=== PATIENT | male | born 2000 | race Two or more races ===

== ENCOUNTER 2020-06-16 14:53 | Outpatient (RCR) | payer MEDICAID, SELFPAY | END 2020-07-09 08:25 | disposition other institution (70) | LOC: HO.PT 14:53 | PROVIDERS: PCP General Practice; Visit Provider General Practice | DX: M54.5 Low back pain (principal) | CPT/HCPCS: 97110; 97161 ==

== ENCOUNTER 2020-09-26 14:20 | Outpatient (REF) | payer MEDICAID, SELFPAY ==
--- NOTE | ~2020-09-26 | XR_ITS ---
EXAMINATION: BILATERAL HAND X-RAY CLINICAL INFORMATION: Stiffness COMPARISON: Previous x-ray July 2017 TECHNIQUE: 3 views each hand FINDINGS: Bone alignment is normal. No fracture or dislocation is seen. The joint spaces are normal. Soft tissues are normal. XR/XR hand LT min 3V IMPRESSION: Unremarkable exam.
--- NOTE | ~2020-09-26 | XR_ITS ---
EXAMINATION: BILATERAL HAND X-RAY CLINICAL INFORMATION: Stiffness COMPARISON: Previous x-ray July 2017 TECHNIQUE: 3 views each hand FINDINGS: Bone alignment is normal. No fracture or dislocation is seen. The joint spaces are normal. Soft tissues are normal. XR/XR hand RT min 3V IMPRESSION: Unremarkable exam.
== END 2020-09-26 14:21 | disposition home or self-care (01) ==
LOC: HO.XRAY 14:20
PROVIDERS: PCP Family Medicine; Visit Provider Internal Medicine
DX: M25.641 Stiffness of right hand, not elsewhere classified (principal); M25.642 Stiffness of left hand, not elsewhere classified
CPT/HCPCS: 73130

== ENCOUNTER 2023-02-02 15:10 | Outpatient (AMB) | payer OTHER, SELFPAY ==
--- NOTE | 2023-02-02 15:30 | A.OFFVIS_ITS ---
Intake Intake Visit Reasons: Genitourinary complaints Intake Note: New patient is present for Genital Complaints HPI HPI Comments History of Present Illness Details Carolynn is a [place]er-speaking male. 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 Erectile issues Occasional erectile issues Appear to be related to sleep status Reassurance provided Review of Systems Const Denies chills and Denies fever(s) Card Reports no additional complaints and Denies syncope Resp Denies cough GI Denies abdominal pain and Denies heartburn Reports as per HPI and Denies change in libido Neuro Denies syncope Psych Denies change in libido Endo Denies change in libido Physical Exam Const General: cooperative, healthy appearing, comfortable and no acute distress Orientation/consciousness: patient oriented x3 HEENT Face and sinus: Yes normal facial exam Mouth: moist mucous membranes Neck Neck: Yes normal visual inspection, Yes full ROM and Yes trachea midline Chest Chest palpation & inspection: normal inspection of the chest Resp Effort & Inspection: normal respiratory effort, able to speak in complete sentences and no respiratory distress GI Inspection: Yes normal to inspection Back/Spine/Pelvis Cervical Spine: normal cervical lordosis Thoracic/Lumbar Spine: thoracic and lumbar spine normal to inspection Skin General skin exam: no rashes or lesions noted Neuro General: patient oriented x3, gait normal, tone normal and moves all extremities Extrem General: Yes normal to inspection and Yes capillary refill normal Assessment & Plan Assessment & Plan (1) Erectile disorder: Code(s): N52.9 - Male erectile dysfunction, unspecified Plan P.r.n. Patient Instructions: Imaging studies, laboratory and physical exam results were discussed and reviewed in detail. No major barriers to patient understanding were identified. An opportunity to ask questions regarding the treatment plan was provided. All questions were answered. The patient expressed understanding and agreement with the above treatment plan. The patient is aware they should contact our office by phone for worsening of their current condition or the appearance of new urologic symptoms. Compliance is encouraged with any medications and followup testing that is ordered. It is a privilege to participate in the urologic care of your patient. If you have any questions or concerns regarding treatment for the above conditions, or other urologic issues, please do not hesitate to contact me. The office telephone contact is [phone]. This note is constructed using voice recognition software. While every effort has been made to ensure accuracy metal tile lather errors may have been included. Yours sincerely, Dr Christopher Walden MD, [facility] - Urology Providers of Expert, Compassionate Care for the Genitourinary System Coding Level of Care Code New Pt Level 3 (48239) Diagnoses Erectile disorder N52.9
== END 2023-02-02 15:58 | disposition home or self-care (01) ==
PROVIDERS: Visit Provider Urology
DX: N52.9 Male erectile dysfunction, unspecified (principal)
CPT/HCPCS: 99203

== ENCOUNTER → 2023-02-02 15:10 | Outpatient (BNVA) | payer OTHER, SELFPAY | PROVIDERS: Visit Provider Urology | DX: N52.9 Male erectile dysfunction, unspecified (principal) | CPT/HCPCS: 99202 ==

== ENCOUNTER 2023-09-21 13:37 | Outpatient (AMB) | payer OTHER, SELFPAY ==
--- NOTE | 2023-09-21 13:41 | A.OFFVIS_ITS ---
Intake Intake Visit Reasons: Follow Up(Erectile Dys) CONFIRMED Intake Note: Patient presents today for a follow-up on Erectile Dysfunction Meds- None Allergies to Antibiotic- No Known Allergies Blood Thinner- None Patient stated he is having early ejaculation during sex, and he is feeling worry. Skate Maker Required: Yes Accompanied by: Self / Same As Patient Allergies No Known Allergies Allergy (Verified 09/21/23 13:48) HPI HPI Comments History of Present Illness Details Carolynn is a [place]-speaking male. 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 Follow-up for erectile issues Erectile premature ejaculation New relationship Premature ejaculation Recommend trial low-dose daily Cialis plus duration [place] jelly Review of Systems Const Denies chills and Denies fever(s) Card Reports no additional complaints and Denies syncope Resp Denies cough GI Denies abdominal pain and Denies heartburn Reports as per HPI and Denies change in libido Neuro Denies syncope Psych Denies change in libido Endo Denies change in libido Physical Exam Const General: cooperative, healthy appearing, comfortable and no acute distress Orientation/consciousness: patient oriented x3 HEENT Face and sinus: Yes normal facial exam Mouth: moist mucous membranes Neck Neck: Yes normal visual inspection, Yes full ROM and Yes trachea midline Chest Chest palpation & inspection: normal inspection of the chest Resp Effort & Inspection: normal respiratory effort, able to speak in complete sentences and no respiratory distress GI Inspection: Yes normal to inspection Back/Spine/Pelvis Cervical Spine: normal cervical lordosis Thoracic/Lumbar Spine: thoracic and lumbar spine normal to inspection Skin General skin exam: no rashes or lesions noted Neuro General: patient oriented x3, gait normal, tone normal and moves all extremities Extrem General: Yes normal to inspection and Yes capillary refill normal Assessment & Plan Assessment & Plan (1) Premature ejaculation: Code(s): F52.4 - Premature ejaculation (2) Erectile disorder: Code(s): N52.9 - Male erectile dysfunction, unspecified Plan Three-month follow-up tele Medications: New tadalafil 2.5 mg PO DAILY 90 days 90 tabs 0RF sexual activity F52.4 - Premature ejaculation Patient Instructions: Imaging studies, laboratory and physical exam results were discussed and reviewed in detail. No major barriers to patient understanding were identified. An opportunity to ask questions regarding the treatment plan was provided. All questions were answered. The patient expressed understanding and agreement with the above treatment plan. The patient is aware they should contact our office by phone for worsening of their current condition or the appearance of new urologic symptoms. Compliance is encouraged with any medications and followup testing that is ordered. It is a privilege to participate in the urologic care of your patient. If you have any questions or concerns regarding treatment for the above conditions, or other urologic issues, please do not hesitate to contact me. The office telephone contact is [phone]. This note is constructed using voice recognition software. While every effort has been made to ensure accuracy onion farmer errors may have been included. Yours sincerely, Dr Christopher Walden MD, [facility] - Urology Providers of Expert, Compassionate Care for the Genitourinary System Coding Level of Care Code Est Pt Level 4 (23781) Diagnoses Premature ejaculation F52.4 Erectile disorder N52.9
== END 2023-09-21 14:07 | disposition home or self-care (01) ==
PROVIDERS: PCP Family Medicine; Visit Provider Urology
DX: F52.4 Premature ejaculation (principal); N52.9 Male erectile dysfunction, unspecified
CPT/HCPCS: 99213

== ENCOUNTER → 2023-09-21 13:37 | Outpatient (BNVA) | payer OTHER, SELFPAY | PROVIDERS: PCP Family Medicine; Visit Provider Urology ==

== ENCOUNTER 2023-10-11 11:19 | Outpatient (REF) | payer MEDICAID, SELFPAY ==
[2023-10-11 13:54] LABS: Cholesterol 203 mg/dL (<200); HDL Cholesterol 42 mg/dL (>40); LDL Cholesterol Calculated 149 mg/dL (<100); TSH reflex Free T4 0.97 uIU/mL (0.32-4.0); Triglycerides 63 mg/dL (<150)
[2023-10-11 14:34] LABS: CT PCR NOT DETECTED (Not Detect.); NG PCR NOT DETECTED (Not Detect.)
[2023-10-11 14:45] LABS: Reflex LDLD? No
[2023-10-12 07:31] LABS: HBS Num1 37.64 mIU/mL (0-7.99); HBc Num1 0.05 S/CO (0.00-0.79); HBsAGNum1 0.34 S/CO (0.00-0.99); HIV AB/AG Nonreactive (Nonreactive); HIV Num 1 0.07 S/CO (0.00-0.99); Hepatitis B Core Antibody Nonreactive (Nonreactive); Hepatitis B Surface Antigen Negative (Negative); ~Hepatitis B Surface Antibody REACTIVE (Nonreactive); ~Hepatitis C Antibody Nonreactive (Nonreactive)
[2023-10-12 07:52] LABS: Syphilis Screen Nonreactive (Nonreactive)
== END 2023-10-11 11:20 | disposition home or self-care (01) ==
LOC: HO.HHCL 11:19
PROVIDERS: Visit Provider Family Medicine
DX: Z11.4 Encounter for screening for human immunodeficiency virus [HIV] (principal); Z13.6 Encounter for screening for cardiovascular disorders; R63.5 Abnormal weight gain; Z20.2 Contact with and (suspected) exposure to infections with a predominantly sexual mode of transmission
CPT/HCPCS: 0353U; 36415; 80061; 84443; 86704; 86706; 86780; 86803; 87340; 87389

== ENCOUNTER 2023-12-22 10:54 | Outpatient (AMB) | payer MEDICAID, SELFPAY ==
--- NOTE | 2023-12-22 11:24 | A.OFFVIS_ITS ---
Intake Visit Reasons: 3m follow up Intake Note: Patient is Present for Follow Up Urology Medication: Tadalafil Antibiotic Allergies:None Blood Thinners:None Allergies No Known Allergies Allergy (Verified 12/22/23 11:25) Medication List - Last Reconciled 12/22/23 by Christopher Walden MD esomeprazole magnesium 20 mg PO DAILY tadalafil 5 mg PO DAILY 90 days tadalafil 10 mg PO ONCE PRN 30 days tramadol 50 mg PO ONCE PRN 30 days HPI Comments Details: Carolynn is a [place]-speaking male. He is seen for the following urologic conditions - erectile issues Follow-up for erectile issues Good response to tadalafil for firmness Still with issues of premature ejaculation Recommend duration [place] lidocaine spray Will also give tramadol Six-month follow-up Erectile premature ejaculation New relationship Premature ejaculation Recommend trial low-dose daily Cialis plus duration [place] jelly Review of Systems Const Denies chills and Denies fever(s) Card Reports no additional complaints and Denies syncope Resp Denies cough GI Denies abdominal pain and Denies heartburn Reports as per HPI and Denies change in libido Neuro Denies syncope Psych Denies change in libido Endo Denies change in libido Physical Exam Const General: cooperative, healthy appearing, comfortable and no acute distress Orientation/consciousness: patient oriented x3 HEENT Face and sinus: Yes normal facial exam Mouth: moist mucous membranes Neck Neck: Yes normal visual inspection, Yes full ROM and Yes trachea midline Chest Chest palpation & inspection: normal inspection of the chest Resp Effort & Inspection: normal respiratory effort, able to speak in complete sentences and no respiratory distress GI Inspection: Yes normal to inspection Back/Spine/Pelvis Cervical Spine: normal cervical lordosis Thoracic/Lumbar Spine: thoracic and lumbar spine normal to inspection Skin General skin exam: no rashes or lesions noted Neuro General: patient oriented x3, gait normal, tone normal and moves all extremities Extrem General: Yes normal to inspection and Yes capillary refill normal Assessment & Plan Assessment & Plan (1) Premature ejaculation: Code(s): F52.4 - Premature ejaculation Category: Medical (2) Erectile disorder: Code(s): N52.9 - Male erectile dysfunction, unspecified Category: Medical Plan Daily tadalafil 5 mg 10 mg on demand Tramadol as necessary for premature ejaculation Duration lidocaine spray Medications: New tadalafil as needed 10 mg PO ONCE 30 days PRN 30 tabs 1RF sexual activity N52.9 - Male erectile dysfunction, unspecified tramadol 60 min prior to activity 50 mg PO ONCE 30 days PRN 15 tabs 0RF premature ejaculation F52.4 - Premature ejaculation Changed From tadalafil 2.5 mg PO DAILY 90 days 90 tabs 0RF sexual activity F52.4 - Premature ejaculation To tadalafil 5 mg PO DAILY 90 days 90 tabs 0RF sexual activity F52.4 - Premature ejaculation Patient Instructions: Imaging studies, laboratory and physical exam results were discussed and reviewed in detail. No major barriers to patient understanding were identified. An opportunity to ask questions regarding the treatment plan was provided. All questions were answered. The patient expressed understanding and agreement with the above treatment plan. The patient is aware they should contact our office by phone for worsening of their current condition or the appearance of new urologic symptoms. Compliance is encouraged with any medications and followup testing that is ordered. It is a privilege to participate in the urologic care of your patient. If you have any questions or concerns regarding treatment for the above conditions, or other urologic issues, please do not hesitate to contact me. The office telephone contact is [phone]. This note is constructed using voice recognition software. While every effort has been made to ensure accuracy base ply hand errors may have been included. Yours sincerely, Dr Christopher Walden MD, [facility] - Urology Providers of Expert, Compassionate Care for the Genitourinary System Coding Level of Care Code Est Pt Level 4 (73172) Diagnoses Premature ejaculation F52.4 Erectile disorder N52.9
== END 2023-12-22 11:46 | disposition home or self-care (01) ==
PROVIDERS: PCP Family Medicine; Visit Provider Urology
DX: N52.9 Male erectile dysfunction, unspecified (principal); F52.4 Premature ejaculation
CPT/HCPCS: 99213

== ENCOUNTER → 2023-12-22 10:54 | Outpatient (BNVA) | payer OTHER, SELFPAY | PROVIDERS: PCP Family Medicine; Visit Provider Urology | DX: F52.4 Premature ejaculation (principal); N52.9 Male erectile dysfunction, unspecified; Z79.899 Other long term (current) drug therapy | CPT/HCPCS: 99212 ==

== ENCOUNTER 2024-01-23 15:39 | Outpatient (REF) | payer MEDICAID, SELFPAY | END 2024-01-23 15:40 | disposition home or self-care (01) | LOC: HO.HHCLNP 15:39 | PROVIDERS: Visit Provider Family Medicine | DX: R10.9 Unspecified abdominal pain (principal) | CPT/HCPCS: 87338 ==

== ENCOUNTER 2024-08-01 17:54 | Outpatient (REF) | payer MEDICAID, SELFPAY | END 2024-08-01 17:55 | disposition home or self-care (01) | LOC: HO.HHCLNP 17:54 | PROVIDERS: Visit Provider Internal Medicine | DX: R50.9 Fever, unspecified (principal) | CPT/HCPCS: 87070 ==

== ENCOUNTER 2024-11-06 12:01 | Outpatient (REF) | payer MEDICAID, SELFPAY ==
[2024-11-06 13:39] LABS: Estimated Average Glucose 111 mg/dL; Hemoglobin A1C 143.2763 umol/L; Hemoglobin A1c % 5.5 % (<6.0); Total Hemoglobin (HGBA1C) 3934.9919 umol/L
--- OUTSIDE RECORDS SUMMARY | 2024-11-06 14:07 | XMS_ITS | Encounter Summary ---
Author Organization [employer] Address [address] [place] [address] Care Team Providers Care Blueprint Duplicator Name Role Phone Samira Martinez MD Primary Care Provider Reason for Visit * Reason Onset Date Comments Referral 10/08/2022 Encounter Details Date Type Department Care Team (Late st Contact Info) Description 10/08/2022 Telephone [facility] [address], [place] [phone] Samira Martinez MD [address], [place] [phone] Referral Social History Tobacco Use Types Packs/Day Years Used Date Smoking Tobacco: Never Assessed Sex and Gender Information Value Date Recorded Sex Assigned at Male 05/10/2022 10:31 AM EDT Legal Sex Male 10:31 AM EDT Gender Identity Male 05/10/2022 10:31 AM EDT Sexual Orientation Straight 05/10/2022 10 :31 AM EDT documented as of this encounter Miscellaneous Notes * Telephone Encounter - Marivel Mullen RN - 10/08/2022 2:05 PM EDT T/C returned to pt re below message. Pt would like referral as he is having some issues with his genitals, pt states he's had issues since he was 13. Was a little embarrassed to speak about specifics. Pt verbalized understanding and denied having any further questions or concerns at this time. * Telephone Encounter - Diana Diamond - 10/08/2022 1:14 PM EDT Tc from pt requesting a referral for an urology. Please contact pt at [phone] Sami Speaker documented in this encounter Plan of Treatment Not on file documented as of this encounter Visit Diagnoses Not on filedocumented in this encounter Care Teams Blueprint Duplicator Relationship Specialty Start Date End Date Samira Martinez MD [address] [place] [phone] PCP - General Family Medicine 10/04/16 documented as of this encounter
--- OUTSIDE RECORDS SUMMARY | 2024-11-06 14:07 | XMS_ITS | Clinical Summary ---
Author Organization [email or web address] Address [address] [place] [address] Care Team Providers Care Beater Worker Helper Name Role Phone Samira Martinez MD Primary Care Provider [phone] Allergies No known active allergies Medications ibuprofen 600 MG tablet take 1 tablet by oral route 3 times daily as needed for pain, take with foods, do not take everyday for >2wks 07/24/19 19 Active fluticasone (Flonase) 50 MCG/ACT nasal sprayIndications:Ac armando nasopharyngitis Administer 1 spray into each nostril in the morning. 16 g 2 10/28/19 23 Active cetirizine (ZyrTEC) 10 MG tabletIndications:A cute nasopharyngitis Take 1 tablet (10 mg) by mouth in the morning. 30 tablet 2 10/28/19 23 Active famotidine (Pepcid) 20 MG tablet Take 1 tablet (20 mg) by mouth Once per day. 30 tablet 2 01/23/20 24 Active Active Problems Problem Noted Date Diagnosed Date GERD (gastroesophageal reflux disease) Assessment & Plan (10/22/2023 7:16 PM EDT): - continue famotidine and sucralfate - previously prescribed esomeprazole and omeprazole - consider referral to GI for EGD evaluation if refractory - avoid irritatnts Erectile dysfunction 10/22/2023 Assessment & Plan (10/22/2023 7:10 PM EDT): - following with urologist - continue current treatment plan per urologist Allergic rhinitis 10/22/2023 Assessment & Plan (10/22/2023 7:15 PM EDT): - continue cetirizine and fluticasone nasal ELIZABETH (obstructive sleep apnea) 10/11/2023 Assessment & Plan (10/11/2023 5:43 AM EDT): Sleep Study on 05/14/21; showed mild ELIZABETH -Pt reports improvements of apnea Tinea versicolor 10/11/2023 Assessment & Plan (10/22/2023 7:09 PM EDT): Previously Dx with Tinea Versicolor. Treated with fluconazole PO 300 mg weekly x 2 and selenium sulfide shampoo. -Pt reports this treatment was ineffective. -Referred to Derm clinic, but patient did not keep appointment because he found another dermatological treatment online. History of Helicobacter pylori infection 023 History of COVID-19 06/21/2022 Resolved Problems Problem Noted Date Diagnosed Date Resolved Date Sore throat 10/27/2022 10/11/2023 Acute nasopharyngitis 10/27/20222023 Assessment & Plan (10/27/2022 12:17 PM EDT): Neg rapid Covid/Influenza tests Rx Flonase nasal spray x1w + Loratadine Out of school x 2d Rest (sleep at least 8 hours a night). Hydrate with plenty of water (avoid caffeine and alcohol). Use saline nose drops to loosen mucus Take Acetaminophen (Tylenol??)/Ibuprofen as needed to reduce fever, headache, body aches or discomfort Gargle with salt water and use throat sprays/lozenges for throat pain. Use heated, humidified air. If you do not have a humidifier, take hot showers. Cover coughs and sneezes using the crook of your elbow. If you have a fever, stay home and away from others (self isolation) until fever-free for 72 hours (temperature should be less than 100??F without medication). RTC prn Encounters Date Type Department Care Team Description 11/06/2024 10:45 AM EDT Office Visit [facility] [address] [place] [phone] Samira Martinez MD Routine general medical examination at a health care facility (Primary Dx); Screening for diabetes mellitus 11/06/[address] [facility] [address] [place] [address] Samira Martinez MD 11/06/2024 Travel 10/25/[address] [facility] [address] [place], [place] [phone] Samira Martinez MD Pre-visit Planning (SDOH negative, Tobacco screening negative) 10/23/[address] [facility] [address], [place] [phone] Samira Martinez MD chart prep 09/21/2024 Population Health Risk Score [facility] () Department [address] [place] [phone] Provider, Population Health Generic 08/23/[address] [facility] [address], [place] [phone] Anupama Horton [place] apil recall from Last 3 Months Immunizations Name Administration Dates Next Due DTaP 12/31/2003, 3,02/09/2000,11/16 DTaP, 5 pertussis antigens 1999 HPV 9-Valent 03/17/2017,10/04/2016,11/22/2014 Hep A, Adult 07/24/2018 Hep A, ped/adol, 2 dose 10/04/2016 Hep B, Adolescent or Pediatric 02/09/2000,1999,1999 HiB, unspecified 02/09/2000,1999 Hib (PRP-T) 1999 IPV 07/30/2003, 0,1999,09/14 Influenza injectable quadriv alent preservative free 04/01/2020,07/24/2018,07/27/2017,10/04,08/16/2011,06/18/2009 MMR 07/30/2003,08/01/2000 Meningococcal MCV4P ACYW-135 10/04/2016,08/16/19 12 Pfizer Covid-19 Vaccine 12+ 03/04/2021, 1 TD (adult), 2 Lf tetanus tox oid, preservative free, adsorbed 08/16/2011 Tdap 02/19/2022,08/16/2011 Varicella 08/16/2011,08/01/2000 Family History Medical History Relation Name Comments Cancer Maternal Grandmother Relation Name Status Comments Maternal Grandmother Social History Tobacco Use Types Packs/Day Years Used Date Smoking Tobacco: Never Passive Smoke Exposure: Never Smokeless Tobacco: Never Tobacco Cessation:Counseling Given: Not Answered Depression Answer Date Recorded Patient Health Questionnaire-9 Score 2 11/06/2024 Patient Health Questionnaire-9 Score 2 11/06/2024 Last PHQ-9: Questionnaire Data Not on file 0 11/06/2024 Housing Stability Answer Date Recorded What is your housing situation today? I have geo beth 10/25/[address] you li ve. Do you have problems with any of the following? None of the above 10/25/2024 Food Insecurity Answer Date Recorded Within the past 12 months, y ou worried that your food would run out before you got money to buy more: Never True 10/25/2024 Within the past 12 months,th e food you bought just didn't last and you didn't have enough money to get more: Never True Transportation Answer Date Recorded In the past 12 months, has l ack of transportation kept you from medical appts, meetings, work or from getting things needed for daily living? No 10/25/2024 Utilities Answer Date Recorded In the past 12 months, has t he electric, gas, oil or water company threatened to shut off services in your home? No 10/25/2024 Depression Answer Date Recorded Patient Health Questionnaire-2 Score 0 11/06/2024 Internet Access Answer Date Recorded Internet Access Q1 Yes 10/25/2024 Internet Access Q2 Not on file 10/25/2024 Sex and Gender Information Value Date Recorded Sex Assigned at Male 05/10/2022 10:31 AM EDT Legal Sex Male 10:31 AM EDT Gender Identity Male 05/10/2022 10:31 AM EDT Sexual Orientation Straight 05/10/2022 10 :31 AM EDT Last Filed Vital Signs Vital Sign Reading Time Taken Comments Blood Pressure 127/79 11/06/2024 11:03 AM EDT Pulse 92 11/06/2024 11:03 AM EDT Temperature 36.5 ??C (97.7 ??F) 11/06/2024 11:03 AM E DT Respiratory Rate 20 11/06/2024 11:03 AM EDT Oxygen Saturation 96% 11/06/2024 11:03 AM EDT Inhaled Oxygen Concentration - - Weight 83 kg (183 lb) 11/06/2024 11:03 AM EDT Height 168.4 cm (5' 6.29 ) 11/06/2024 11:03 AM E DT Body Mass Index 29.28 11/06/2024 11:03 AM EDT Plan of Treatment Health Maintenance Due Date Last Done Comments Alcohol/Substance Use Screening 2011 Family Planning (PISQ) 2014 COVID-19 Vaccine ( season) 2024 03/04/2021, 02/11/2021 Influenza Vaccine (#1) 2024 , 07/24/2018, 07/27/2017, Additional history exists Depression Screening 10/10/2024 10/11/2023, 10/11/19 24 SDOH Screening 10/25/2025 10/25/2024 Tobacco Screening 11/06/2025 11/06/2024 DTaP/Tdap/Td Vaccines (8 - Td or Tdap) 02/20/2032 02/19/2022, 08/16/2011, 08/16/2011, Additional history exists Zoster Vaccines (1 of 2) 2049 RSV Patients and Patients Aged 60 years or older (1 - 1-dose 75+ series) 2074 HIB Vaccines Aged Out 02/09/2000, 01/2000, 1999 No longer eligible based on patient's age to complete this topic Hepatitis B Vaccines Completed 02/09/2000, 1999, 1999 IPV Vaccines Completed 07/30/2003, 07/1999, 1999, Additional history exists Meningococcal Vaccine Completed 10/04/2016, 012 HPV Vaccines Completed 03/17/2017, 09/09, 11/22/2014 Hepatitis A Vaccines Completed 07/24/2018, 10/05/19 17 HIV Screening Completed 10/11/2023, 080 10/2021, 04/07/2020 Hepatitis C Screening Completed 10/11/2023 , 02/11/2022, 04/07/2020 Pneumococcal Vaccine: Pediatrics (0 to 5 Years) and At-Risk Patients (6 to 49) Years) Aged Out No longer eligible based on patient's age to complete this topic RSV under 20 months Aged Out No longe r eligible based on patient's age to complete this topic Rotavirus Vaccines Aged Out No longer eligible based on patient's age to complete this topic Procedures Procedure Name Priority Date/Time Associated Diagnosis Comments HEMOGLOBIN A1C Routine 11/06/2024 12:03 PM EDT Screening for diabetes mellitus HEPATITIS C AB W/REFL TO HCV RNA, QN, PCR Routine 10/11/2023 11:30 AM EDT Routine screening for STI (sexually transmitted infection) HIV 1/2 ANTIGEN/ANTIBODY, FOURTH GENERATION W/RFL Routine 10/11/2023 11:30 AM EDT Routine screening for STI (sexually transmitted infection) from Last 3 Months or Most Recently Relevant to Health Maintenance Results * Hemoglobin A1c (11/06/2024 12:03 PM EDT) Hemoglobin A1c 5.5 <6.0 % [facility] Comment:Hemoglobin A1C Refer ence Range Adults: 4.8 - 6.0 % Non diabetic: < 6.0 % Goal: < 7.0 %Additional Action Suggested: > 8.0 %Note: Hemoglobin A1c results are invalid for patients with abnormal amounts of HbF. Blood transfusions may impact the HbA1c concentration in the patient sample. Estimated Average Glucose 111 mg/dL [facility] Comment:eAG = Estimated ave rage glucose which is %A1C expressed asaverage glucose, using the formula of the D7H-FyedxvoGgeogcx Glucose study (ADAG), Diabetes Care, Vol.31,#8,Feb. 2007 Blood Venous blood specimen / Unknown 11/06/2024 12:03 PM EDT 11/06/2024 1:10 PM EDT us Samira Martinez MD LAB BLOOD ORDERABLES Final Resul t Performing Organization Address [facility] Co de Phone Number [facility] [address] [place] [address] [phone] * Hepatitis C Antibody with Reflex to HCV, RNA, Quantitative, Real-Time PCR (10/11/2023 11:30 AM EDT) Hepatitis C Antibody Nonreactive Nonreactive [facility] Comment:Antibodies to HCV no t detected; does not exclude early acuteHCV infection. Blood Venous blood specimen / Unknown 10/11/2023 11:30 AM EDT 10/11/2023 12:42 PM EDT Samira Martinez MD LAB BLOOD ORDERABLES Final Resul t Performing Organization Address [facility] Co de Phone Number [facility] [address] [place] [phone] * HIV-1/2 Antigen and Antibodies, Fourth Generation, with Reflexes (10/11/2023 11:30 AM EDT) HIV AB/AG Nonreactive Nonreactive [facility] Comment:HIV-1 p24 Ag and/or HIV-1/HIV-2 Ab not detected.A test result that is nonreactive does not exclude thepossibility of exposure to or infection with HIV-1 and/orHIV-2. Nonreactive results in this assay for individualswith prior exposure to HIV-1 and/or HIV-2 may be due toantigen and antibody levels that are below the limit ofdetection of this assay.The [email or web address] HIV Ag/Ab Combo assay result andsupplemental assay results should be interpreted inconjunction with the patient's clinical presentation,history and other laboratory results. If the results areinconsistent with clinical evidence, additional testing issuggested to confirm the result. Blood Venous blood specimen / Unknown 10/11/2023 11:30 AM EDT 10/11/2023 12:42 PM EDT us Samira Martinez MD LAB BLOOD ORDERABLES Final Resul t [facility] [address], [place] [phone] from Last 3 Months or Most Recently Relevant to Health Maintenance Care Teams Beater Worker Helper Relationship Specialty Start Date End Date Samira Martinez MD [address] [place] [phone] PCP - General Family Medicine 10/04/16
--- OUTSIDE RECORDS SUMMARY | 2024-11-06 14:07 | XMS_ITS | Encounter Summary ---
Author Organization [employer] Address [address] [facility] [address]t [place] [address] Care Team Providers Care Nurse Auditor Name Role Phone Samira Martinez MD Primary Care Provider Encounter Details Date Type Department Care Team (Latest Contact Info) Description 11/06/2024 Travel Social History Tobacco Use Types Packs/Day Years Used Date Smoking Tobacco: Never Passive Smoke Exposure: Never Smokeless Tobacco: Never Depression Answer Date Recorded Patient Health Questionnaire-9 Score 2 11/06/2024 Patient Health Questionnaire-9 Score 2 11/06/2024 Last PHQ-9: Questionnaire Data Not on file 0 11/06/2024 Housing Stability Answer Date Recorded What is your housing situation today? I have geovivian beth 10/25/[address] you [...] AM EDT documented as of this encounter Plan of Treatment Not on file documented as of this encounter Visit Diagnoses Not on filedocumented in this encounter Additional Health Concerns Assessment Noted Time PHQ-9 Depression Total Score: 2 11/07/19 25 1:14 PM EDT documented as of this encounter Care Teams Nurse Auditor Relationship Specialty Start Date End Date Samira Martinez MD [address] [place] [phone] PCP - General Family Medicine 10/04/16 documented as of this encounter
--- OUTSIDE RECORDS SUMMARY | 2024-11-06 14:07 | XMS_ITS | Encounter Summary ---
Author Organization [employer] Address [address] [facility] 7t [place] [address] Care Team Providers Care Clinical Trial Associate Name Role Phone Samira Martinez MD Primary Care Provider [phone] Encounter Details Date Type Department Care Team (Late st Contact Info) Description 11/06/2024 Telephone [facility] [address] [place], [place] [phone] Samira Martinez MD [address] [place], [place] [phone] Social History Tobacco Use Types Packs/Day Years [...] t he electric, gas, oil or water [employer] threatened to shut off services in your [...] encounter Miscellaneous Notes * Telephone Encounter - Manda Frank - 11/06/2024 10:58 AM EDT Pt walked in for an apt , fd advised pt insurance was not active pt stated he is going to call and get it fixed . Fd mentioned self pay form pt agreed on making it their full responsibility for this visit , fd advised pt once it insurance gets fixed they can send the bill to [employer] . documented in this encounter Plan of Treatment Not on file documented as of this encounter Visit Diagnoses Not on filedocumented in this encounter Additional Health Concerns Assessment Noted Time PHQ-9 Depression Total Score: 2 11/07/19 25 1:14 PM EDT documented as of this encounter Care Teams Clinical Trial Associate Relationship Specialty Start Date End Date Samira Martinez MD [address] [place] [phone] PCP - General Family Medicine 10/04/16 documented as of this encounter
--- OUTSIDE RECORDS SUMMARY | 2024-11-06 14:07 | XMS_ITS | Encounter Summary ---
Author Organization [employer] Address [address] [place] [address] 7 [place] [address] Care Team Providers Care Lokie Engineer Name Role Phone Samira Martinez MD Primary Care Provider [phone] Encounter Details Date Type Department Care Team (Late st Contact Info) Description 10/15/2022 Orders Only [facility] [address] [place], [place] [phone] Samira Martinez MD [address] [place], [place] [phone] Genitourinary complaints (Primary Dx) Social History Tobacco Use Types Packs/Day Years [...] documented as of this encounter Visit Diagnoses Diagnosis Genitourinary complaints- Primary documented in this encounter Care Teams Lokie Engineer Relationship Specialty Start Date End Date Samira Martinez MD [address] [place], [place] [phone] PCP - General Family Medicine 10/04/16 documented as of this encounter
--- OUTSIDE RECORDS SUMMARY | 2024-11-06 14:07 | XMS_ITS | Clinical Summary ---
Author Organization [facility] Address [address] [place] [address] Care Team Providers Care Custom Clothier Name Role Phone Unavailable Primary Care Provider Unavailabl e Social History Tobacco Use Types Packs/Day Years Used Date Smoking Tobacco: Never Assessed Sex and Gender Information Value Date Recorded Sex Assigned at Not on file Legal Sex Male 12:18 AM EST Gender Identity Not on file Sexual Orientation Not on file Plan of Treatment Health Maintenance Due Date Last Done Comments HPV Vaccines (1 - Male 3-dos e series) 2014 DTaP,Tdap,and Td Vaccines (1 - Tdap) 2018 Hepatitis B Vaccines (1 of 3 - 19+ 3-dose series) 2018 Depression Screening 06/13/2022 HIV Screening 06/13/2022 Hepatitis C Screening 06/13/2022 Social Influencers of Health Screening 06/13/2022 COVID-19 Vaccine ( - 2023-2 5 season) 2024 Influenza Vaccine (Season Ended) 2025 HIB Vaccines Aged Out No longer eligi ble based on patient's age to complete this topic Hepatitis A Vaccines Aged Out No long er eligible based on patient's age to complete this topic IPV Vaccines Aged Out No longer eligi ble based on patient's age to complete this topic MMR Vaccines Aged Out No longer eligi ble based on patient's age to complete this topic Meningococcal ACWY Vaccine Aged Out N o longer eligible based on patient's age to complete this topic Meningococcal B Vaccine Aged Out No l onger eligible based on patient's age to complete this topic Pneumococcal Vaccine: Pediat rics (0 to 5 Years) and At-Risk Patients (6 to 64 Years) Aged Out No longer eligible b ased on patient's age to complete this topic RSV Immunization Patients Un sundeep 20 months Aged Out No longer eligible b ased on patient's age to complete this topic Varicella Vaccines Aged Out No longer eligible based on patient's age to complete this topic
--- OUTSIDE RECORDS SUMMARY | 2024-11-06 14:07 | XMS_ITS | Encounter Summary ---
Author Organization [employer] Address [address] [facility] [address] [place] [address] Care Team Providers Care Rn Intake Name Role Phone Samira Martinez MD Primary Care Provider [phone] Encounter Details Date Type Department Care Team (Late st Contact Info) Description 11/06/2024 10:45 AM EDT Office Visit [facility] [address] [place], [place] [phone] Samira Martinez MD [address] [place], [place] [phone] Routine general medical examination at a health care facility (Primary Dx); Screening for diabetes mellitus Social History Tobacco Use Types Packs/Day Years [...] AM EDT documented as of this encounter Last Filed Vital Signs Vital Sign Reading [...] Mass Index 29.28 11/06/2024 11:03 AM EDT documented in this encounter Plan of Treatment Not on file documented as of this encounter Procedures Procedure Name Priority Date/Time Associated Diagnosis Comments HEMOGLOBIN A1C Routine 11/06/2024 12:03 PM EDT Screening for diabetes mellitus documented in this encounter Results * Hemoglobin A1c (11/06/2024 12:03 PM EDT) Hemoglobin A1c 5.5 <6.0 % [facility] Comment:Hemoglobin A1C Refer ence Range Adults: 4.8 - 6.0 % Non diabetic: < 6.0 % Goal: < 7.0 %Additional Action Suggested: > 8.0 %Note: Hemoglobin A1c results are invalid for patients with abnormal amounts of HbF. Blood transfusions may impact the HbA1c concentration in the patient sample. Estimated Average Glucose 111 mg/dL [facility] Comment:eAG = Estimated ave rage glucose which is %A1C expressed asaverage glucose, using the formula of the W4C-LkvulrtAykkxbd Glucose study (ADAG), Diabetes Care, Vol.31,#8,Feb. 2007 Blood Venous blood specimen / Unknown 11/06/2024 12:03 PM EDT 11/06/2024 1:10 PM EDT us Samira Martinez MD LAB BLOOD ORDERABLES Final Resul t [facility] [address] [place] [address] [phone] documented in this encounter Visit Diagnoses Diagnosis Routine general medical examination at a health care facility- Primary Screening for diabetes mellitus documented in this encounter Additional Health Concerns Assessment Noted Time PHQ-9 Depression Total Score: 2 11/07/19 25 1:14 PM EDT documented as of this encounter Care Teams Rn Intake Relationship Specialty Start Date End Date Samira Martinez MD [address] [place] [phone] PCP - General Family Medicine 10/04/16 documented as of this encounter
== END 2024-11-06 12:02 | disposition home or self-care (01) ==
LOC: HO.HHCL 12:01
PROVIDERS: Visit Provider Family Medicine
DX: Z13.1 Encounter for screening for diabetes mellitus (principal)
CPT/HCPCS: 36415; 83036

== ENCOUNTER 2025-02-22 14:25 | Outpatient (REF) | payer MEDICAID, SELFPAY ==
--- NOTE | ~2025-02-22 | XR_ITS ---
EXAMINATION: XR SHOULDER 2 OR MORE VIEWS LEFT HISTORY: PAIN COMPARISON: There are no prior studies available for comparison. FINDINGS: Four views of the left shoulder are submitted. Osseous mineralization is normal. There is no fracture or dislocation. The glenohumeral and acromioclavicular joint spaces are preserved. The soft tissues are unremarkable. XR/XR shoulder LT min 2V IMPRESSION: Unremarkable examination of the left shoulder. Electronically signed by: Cody Aldana MD 02/22/2025 03:31 PM EDT
--- OUTSIDE RECORDS SUMMARY | 2025-02-22 14:27 | XMS_ITS | Clinical Summary ---
Author Organization [facility] Address [address] [place] [phone] Phone Care Team Providers Care Picture Hanger Name Role Phone Unknown, Unknown Primary Care Provider Herber lable Allergies No known active allergies Medications sucralfate (CARAFATE) 1 gram tablet 02/09/2024 Active Social History Tobacco Use Types Packs/Day Years Used Date Smoking Tobacco: Never Assessed Education Answer Date Recorded Are you interested in more education? Not on sunni e 04/26/2024 Are you concerned about learning? Not on file 04/26/2024 No 04/26/2024 No 04/26/2024 Digital Access Answer Date Recorded No 04/26/2024 No 04/26/2024 Reliable internet access at home? Not on file 04/26/2024 Device with a working camera? Not on file Sex and Gender Information Value Date Recorded Sex Assigned at Not on file Legal Sex Male 11:32 AM EDT Gender Identity Not on file Sexual Orientation Not on file Last Filed Vital Signs Vital Sign Reading Time Taken Comments Blood Pressure 112/71 05/14/2024 9:06 AM EST Pulse 56 05/14/2024 9:06 AM EST Temperature - - Respiratory Rate - - Oxygen Saturation 98% 05/14/2024 9:06 AM EST Inhaled Oxygen Concentration - - Weight 78.9 kg (174 lb) 05/14/2024 9:06 AM EST Height 165.1 cm (5' 5 ) 05/14/2024 9:06 AM EST Body Mass Index 28.96 05/14/2024 9:06 AM EST Plan of Treatment Health Maintenance Due Date Last Done Comments Adult Td,Tdap Booster 1999 DEPRESSION SCREENING 2011 SMOKING Hx and SMOKELESS TOB ACCO SCREENING 2012 HPV VACCINES (1 - Male 3-dos e series) 2014 HEPATITIS C SCREENING 2017 HIV ONE-TIME SCREENING (18-6 5 YEARS) 2017 COVID-19 VACCINE (2023-2 5 season) 2024 HEPATITIS A VACCINES Aged Out No long er eligible based on patient's age to complete this topic HIB VACCINES Aged Out No longer eligi ble based on patient's age to complete this topic MENINGOCOCCAL VACCINES (ACWY) Aged Out No longer eligible based on patient's age to complete this topic MENINGOCOCCAL VACCINES (B) Aged Out N o longer eligible based on patient's age to complete this topic PNEUMOCOCCAL VACCINES (0-49 years) Aged Out No longer eligible based on patient's age to complete this topic Medical Devices Not on file Care Teams Picture Hanger Relationship Specialty Start Date End Date Unknown, Unknown, PCP - General 04/26/24 Additional Source Comments The information contained in this document represents components of the legal health record. It is not the complete legal health record.[facility]
--- OUTSIDE RECORDS SUMMARY | 2025-02-22 14:27 | XMS_ITS | Clinical Summary ---
Author Organization [facility] it[facility] Address [address] [place] [address] Care Team Providers Care Cosmetic Account Coordinator Name Role Phone Unavailable Primary Care Provider [...] of 3 - 19+ 3-dose series) 2018 HIV Screening 06/13/2022 Hepatitis C Screening 06/13/2022 Social Influencers of Health Screening 06/13/2022 COVID-19 Vaccine ( - 2023-2 5 season) 2024 Depression Screening 07/11/2024 Influenza Vaccine (#1) 2025 HIB Vaccines Aged Out No longer [...] 5 Years) and At-Risk Patients (6 to 49 Years) Aged Out No longer eligible b ased on patient's age to complete this topic RSV Immunization Patients Un sundeep 20 months Aged Out No longer eligible b ased on patient's age to complete this topic Varicella Vaccines Aged Out No longer eligible based on patient's age to complete this topic
--- OUTSIDE RECORDS SUMMARY | 2025-02-22 14:27 | XMS_ITS | Encounter Summary ---
Author Organization [facility] Address [address] [place] [address] [address] [place] [address] Care Team Providers Care Yard Assistant Name Role Phone Samira Martinez MD Primary Care Provider [phone] Encounter Details Date Type Department Care Team (Late st Contact Info) Description 10/15/2022 Orders Only [facility] [address] [place], [place] [phone] Samira Martinez MD [address], [place] [phone] Genitourinary complaints (Primary Dx) Social History Tobacco [...] Primary documented in this encounter Care Teams Yard Assistant Relationship Specialty Start Date End Date Samira Martinez MD [address], [place] [phone] PCP - General Family Medicine 10/04/16 documented as of this encounter
== END 2025-02-22 14:26 | disposition home or self-care (01) ==
LOC: HO.HHCX 14:25
PROVIDERS: Visit Provider Emergency Medicine
DX: S49.92XA Unspecified injury of left shoulder and upper arm, initial encounter (principal); M25.512 Pain in left shoulder
CPT/HCPCS: 73030

== ENCOUNTER → 2025-02-22 14:30 | Outpatient (BNV) | payer MEDICAID, SELFPAY | PROVIDERS: Visit Provider Radiology Diagnostic Radiology | DX: M25.512 Pain in left shoulder (principal) | CPT/HCPCS: 73030 ==